=== PATIENT | female | born 1980 | race Hispanic/Latino ===

== ENCOUNTER 2020-10-31 19:31 | Emergency (ER) | payer SELFPAY ==
[2020-10-31] MEDS ORDERED: Lidocaine 2% w/Epinephrine 1:200K 20 ML VIAL ONE (19:48)
[2020-10-31] MEDS ORDERED: Ondansetron ODT 4 MG TAB ONE (20:08)
== END 2020-10-31 20:12 | disposition home or self-care (01) ==
LOC: EEVIPCON 19:31 → BURERS 19:31
DX: S06.0X0A Concussion without loss of consciousness, initial encounter (principal); S01.01XA Laceration without foreign body of scalp, initial encounter; J45.909 Unspecified asthma, uncomplicated; W22.8XXA Striking against or struck by other objects, initial encounter
CPT/HCPCS: Q0162

== ENCOUNTER 2020-11-06 13:11 | Emergency (ER) | payer SELFPAY | END 2020-11-06 13:28 | disposition home or self-care (01) | LOC: BURERS 13:11 | DX: S01.01XD Laceration without foreign body of scalp, subsequent encounter (principal); J45.909 Unspecified asthma, uncomplicated ==